=== PATIENT | female | born 2005 | race African-American/Black ===

== ENCOUNTER 2025-05-19 21:58 | Emergency (ER) | payer SELFPAY ==
[2025-05-19 22:04] VITALS: BP 169/104; PULSE 111; RESP 18; TEMP 37; O2SAT 100; BMI 33.0
[2025-05-19] MEDS: CEFDINIR 300MG CAPSULE 300 MG PO (22:40)
--- NOTE | 2025-05-19 22:50 | ED_ITS ---
Discharge Plan Disposition Patient Disposition: Home, Self-Care Condition: Good Prescriptions Prescriptions: New cefdinir 300 mg capsule 300 mg PO BID 7 Days Qty: 14 0RF Referrals Follow up/Referrals: Provider,Referral, MD [Primary Care Provider, Medical] - See instructions Activity Restrictions/Add. Instructions Additional Instructions/Restrictions: Please return if you have worsening pain in your ear that persist after completion of antibiotics. You will take cefdinir 300 mg twice daily for the next 7 days. Clinical Impressions Clinical Impression: Acute left otitis media Print Language Print Language: Bolivian Discharge ED Provider: Yohan Kingston Adult HPI General Chief complaint: PAIN Stated complaint: left ear pain Time Seen by Provider: 05/19/25 22:20 Mode of Arrival: Ambulatory Source of Information: Patient Description of Symptoms (Recalled from ER Triage Doc. by RN): Pt presents for evaluation of left ear pain that is radiating to her teeth. Pt reports she has had the pain since saturday, and rates it as a 9/10. History of Present Illness HPI narrative: This is a 20-year-old female patient, with no significant past medical history to the medications, who is presenting to the emergency department today for evaluation of left ear pain. Patient states that this pain has progressed over the course of the last couple days and she is now feeling pain radiate down to her jaw. She has not noticed any asymmetric bulging of her ears. She has not had any rhinorrhea or congestion. No cough. No fevers. She states that she did have recurrent ear infections as a child Related Data Previous Rx's ?Medication ?Instructions ?Recorded cefdinir 300 mg capsule 300 mg PO BID 7 days #14 cap s 05/19/25 Allergies Allergy/AdvReac Type Severity Reaction Status Date / Time amoxicillin Allergy Difficulty Verified 05/19/25 22:17 Breathing Penicillins Allergy Other Verified 05/19/25 22:17 [facility] Disclaimer: The information contained in this section may have been updated after the patient was seen, as this information can be updated by other users. Social History Smoking Status: Current every day smoker alcohol intake: never current occupational status: employed Travel in the last 8 weeks?: None ROS Obtained: Yes Systems reviewed as appropriate & no additional complaints except as documented Physical Exam General General appearance: other (See MDM) Respiratory Respiratory exam: Present other (See MDM) Cardiovascular Cardiovascular exam: Present other (See MDM) Neurological Exam Neurological exam: Present other (See MDM) Medical Decision Making Medical Records Medical records reviewed: Yes I reviewed the patient's medical records. Screening: Per USPSTF and CDC recommendations, given the prevalence of disease in our region, it is our hospital?s policy to screen for HIV and viral Hepatitis for all patients aged 18 and over and those with ongoing risk factors. Aureliano Inquiry Pt receiving controlled substance: No Aureliano was queried for this patient: No Vital Signs: 05/19/25 22:04 05/19/25 23:18 Temperature 98.6 F 97.9 F Temperature Source Temporal Artery Scan Oral Pulse Rate 72 Pulse Rate [Right] 111 H Respiratory Rate 18 18 Blood Pressure 134/78 Blood Pressure [Right Arm] 169/104 H Blood Pressure Mean [Right Arm] 125 Blood Pressure Source [Right Arm] Automatic Cuff Blood Pressure Position [Right Arm] Sitting 02 Sat by Pulse Oximetry 100 Oxygen Delivery Method Room Air Room Air Orders (Tests/Meds): ED MEDICATIONS Discontinued Medications Generic Name Dose Route Start Last Admin Trade Name Freq PRN Reason Stop Dose Admin Cefdinir 300 mg 05/19/25 22:32 05/19/25 22:40 Cefdinir 300mg Capsule PO 05/19/25 22:33 300 mg ONCE ONE Administration Medical Decision Narrative: In summary, this is a 20-year-old female [facility]. Patient does not have any comorbidities that would complicate her medical management or care. On initial evaluation of the patient they were resting comfortably in no acute distress and nontoxic in appearance. They are hemodynamically stable, saturating well room air, and are neurologically intact. On physical examination her heart and lungs are clear to auscultation bilaterally. She is appropriately alert and oriented with a GCS of 15. Abdomen is soft and nontender to palpation. She has no abnormal findings on oropharyngeal exam. No submandibular lymphadenopathy. Her right TM has a good light reflex with no bulging or erythema. Left TM demonstrates significant bulging with purulence behind the TM and significant TM erythema. Findings are consistent with acute otitis media. Differential diagnosis includes left-sided acute otitis media. I have considered other differential such as mastoiditis with the patient does not have any tenderness of the mastoid, no erythema of the mastoid, no asymmetric bulging of the ear. There is no excessive copious debris in the external auditory canal to suggest otitis externa. Patient was treated with 300 mg of cefdinir here in the emergency department. I did not she is amoxicillin as she is allergic to penicillins and amoxicillin and her reaction is difficulty with breathing so we chose to avoid that medication. We will send a prescription to her pharmacy for cefdinir to be taken twice daily for the next 7 days. I have asked her to return to the emergency department if she has any new or worsening symptoms or develops symptoms that are refractory to outpatient antibiotics. At this time all questions have been answered and all parties are agreeable with the decision to discharge home Critical Care Critical Care Time Critical Care Time: No
[2025-05-19 23:18] VITALS: BP 134/78; PULSE 72; RESP 18; TEMP 36.6; O2SAT 98
--- OUTSIDE RECORDS SUMMARY | 2025-05-20 00:01 | XMS_ITS | Clinical Summary ---
Author Organization [facility] Address [address] [place] [address] Phone Care Team Providers Care Lead Ruby On Rails Developer Name Role Phone Marcos GRIMALDO, Sarah Primary Care Physician [phone] Conditions or Problems No information available. Medications No information available. Medications Administered No information available. Allergies, Adverse Reactions, Alerts No information available. Results No information available. Plan of Care No information available. Procedures No information available. Vital Signs No information available. Immunizations No information available. Advance Directives No information available.
--- OUTSIDE RECORDS SUMMARY | 2025-05-20 00:02 | XMS_ITS | Clinical Summary ---
Author Organization [facility] [place] [facility] Address [address] [place] [address] Phone Care Team Providers Care Throw Out Clerk Name Role Phone Unavailable Primary Care Provider Unavailabl e Allergies Active Allergy Reactions Criticality Noted Date Comments Amoxicillin Swelling 07/01/2023 Penicillins Swelling 07/01/2023 Medications amLODIPine (NORVASC) 10 mg Oral TabletIndications :Essential hypertension Take 1 Tablet by mouth daily. 90 Tablet 3 07/03/2023 Active Active Problems Problem Noted Date Diagnosed Date Snoring 07/01/2023 Assessment & Plan (07/01/2023 5:26 PM EST): Sleep study discussed. Would like referral to Will inquire about [facility] referral vs [facility] sleep medicine referral Essential hypertension 07/01/2023 Assessment & Plan (07/01/2023 5:25 PM EST): -given young age, will obtain records and review for evaluation of secondary HTN -will confirm amlodipine dose and send in medication -avoid first line use of MEY given race, may be less effective Resolved Problems Problem Noted Date Diagnosed Date Resolved Date Pre-diabetes 07/01/2023 07/03/2023 Immunizations Immunization Administration Dates Next Due DTaP, Unspecified Formulation 07/06/2008 ,08/28/2005,2004,10/09 DTaP/Hep B/IPV 2004 HPV 9 Valent 06/19/2021,05/24/2016 Hep B/HiB 05/14/2005 Hepatitis A, Ped/Adol, 2 Dose 06/01/2013 HiB (PRP-OMP) 2004,2004 IPV 07/06/2008,08/28/2005,2004 Influenza Vaccine Quadrivalent PF 06/19/2021, Influenza, Live, Intranasal 05/15/2012 LAST MANUFACTURED 2011-Pneum ococcal Conjugate 7 Valent 08/28/2005,2004,2004,08/11 MMR 07/06/2008,05/14/2005 Meningococcal B,OMV 06/19/2021 Meningococcal Conjugate 06/19/2021 Varicella 07/06/2008,05/14/2005 Family History Medical History Relation Name Comments Hypertension Maternal Grandmother Relation Name Status Comments Maternal Grandmother Social History Tobacco Use Types Packs/Day Years Used Date Smoking Tobacco: Never Smokeless Tobacco: Never Tobacco Cessation:Counseling Given: Not Answered Alcohol Use Standard Drinks/Week Comments Never 0 (1 standard drink = 0.6 oz pur e alcohol) PHQ-2 Answer Date Recorded PHQ-2 Total Score 0 07/01/2023 Sexually Active Control Partners Comments Not Currently Comments No Sex and Gender Information Value Date Recorded Sex Assigned at Not on file Legal Sex Female 12:04 PM EDT Gender Identity Not on file Sexual Orientation Not on file Obstetrics History Para Term AB IAB SAB Ectopic Multiple Livin g Live Births 0 0 0 0 0 0 0 0 0 0 0 Last Filed Vital Signs Vital Sign Reading Time Taken Comments Blood Pressure 169/93 09/22/2024 7:06 PM EST Pulse 102 09/22/2024 7:23 PM EST Temperature 37.4 C (99.3 F) 09/22/2024 7:06 PM EST Respiratory Rate 16 09/22/2024 6:58 PM EST Oxygen Saturation 100% 09/22/2024 6:58 PM EST Inhaled Oxygen Concentration - - Weight 113.4 kg (250 lb) 09/22/2024 7:06 PM EST Height 182.9 cm (6') 09/22/2024 7:06 PM EST Body Mass Index 33.91 09/22/2024 7:06 PM EST Plan of Treatment Health Maintenance Due Date Last Done Comments Hepatitis B Vaccine (3 of 3 - 3-dose series) 07/09/2005 05/14/2005, 2004 DTaP/TDaP/Td (6 - Tdap) 2015 07/06/20 08, 08/28/2005, 2004, Additional history exists Meningococcal B Vaccine (2 of 2 - Bexsero SCDM 2-dose series) 12/17/2021 06/19/2021 Annual Wellness Exam 07/01/2024 07/01/2023 COVID-19 Vaccine ( season) 2025 Influenza Vaccine (#1) 2025 , 07/02/2017, 05/15/2012 Cervical Cancer Screening 2025 Pap Smear 2025 Pneumococcal Vaccine 0-49 Aged Out 2005, 2004, 2004, Additional history exists No longer eligible based on patient's age to complete this topic HPV Completed 06/19/2021, 05/24/2016 Goals Goal Patient Goal Type Associated Problems Recent Progress Patient-Stated? Author Blood Pressure < 140/90 Blood Pressure 169/93(2024 7:06 PM EST) No Lillian Caruso, Maintain a healthy diet, exercise regularly and maintain an ideal body weight General No Lillian Caruso, DO Insurance [facility] [employer] [place] MDR
== END 2025-05-19 23:25 | disposition home or self-care (01) ==
LOC: ER 05-20
PROVIDERS: Emergency Provider Student in an Organized Health Care Education/Training Program
DX: H66.92 Otitis media, unspecified, left ear (principal)
CPT/HCPCS: 99282; 99283